=== PATIENT | male | born 1995 | race Caucasian/White ===

== ENCOUNTER 2016-10-12 22:37 | Emergency (ER) | payer MEDICAID ==
[~2016-10-12] VITALS: Ht 193 cm; Wt 74.8 kg
--- NOTE | 2016-10-12 23:41 | NUR ---
Patient discharged to home in stable conditon. Written and verbal after care instructions given. Patient verbalizes understanding of instructions. Ambulated from [place] with stable gait. All belongings with patient.
[2016-10-12 23:43] VITALS: BP 130/81
[2016-10-12] MEDS ORDERED: TDAP DIPH,PERTUSS,TET VAC/PF 0.5 ML DISP.SYRIN IM ONE ×2 (23:45→23:47)
== END 2016-10-12 23:43 | disposition home or self-care (01) ==
LOC: ER 22:39
DX: S01.01XA Laceration without foreign body of scalp, initial encounter (principal); R51 Headache; F10.20 Alcohol dependence, uncomplicated; F17.200 Nicotine dependence, unspecified, uncomplicated; F12.10 Cannabis abuse, uncomplicated; W10.9XXA Fall (on) (from) unspecified stairs and steps, initial encounter; Y93.89 Activity, other specified; Y99.8 Other external cause status; Y92.89 Other specified places as the place of occurrence of the external cause
CPT/HCPCS: 12002; 70450; 90471; 90715; 99284; A4663